=== PATIENT | male | born 1965 | race Two or more races ===

== ENCOUNTER 2018-09-17 15:36 | Emergency (ER) | payer OTHER ==
[~2018-09-17] VITALS: Ht 190.5 cm; Wt 103.0 kg
[2018-09-17] MEDS ORDERED: LISINOPRIL10 MG (16:16)
== END 2018-09-17 19:15 | disposition home or self-care (01) ==
LOC: ER 15:36 → EDBD 16:04 → ER 16:04
DX: K29.70 Gastritis, unspecified, without bleeding (principal)

== ENCOUNTER → 2021-07-17 11:09 | Outpatient (CLI) | payer OTHER ==
[~2021-07-17 11:09] MED LIST: LISINOPRIL10 MG
== END | disposition home or self-care (01) ==
LOC: LAB 11:09
PROVIDERS: ATTEND Physical Medicine & Rehabilitation Spinal Cord Injury Medicine
DX: Z20.828 Contact with and (suspected) exposure to other viral communicable diseases (principal)

== ENCOUNTER 2024-12-04 10:16 | Inpatient (IN) | payer OTHER ==
[~2024-12-04] VITALS: Ht 193 cm; Wt 93.9 kg
[2024-12-04] MEDS ORDERED: ZESTRIL20 MG PO (10:46)
[2024-12-04] MEDS ORDERED: 0.9 % SODIUM CHLORIDE 1,000 ML IV ONE (11:15)
[2024-12-04] MEDS ORDERED: BARIUM SULFATE 450 ML ORAL.SUSP PO ONE (11:52)
[2024-12-04 12:15] LABS: BASO % 0.1 % (0.1-1.2); EOS # 0.04 (0.04-0.54); EOS % 0.4 % (0.7-7.0); HEMATOCRIT 40.6 % (40.1-51.0); HEMOGLOBIN 13.9 g/dL (13.7-17.5); LYMPH # 1.45 (1.18-3.74); LYMPH % 15.2 % (19.3-53.1); MEAN CORPUSCULAR HEMOGLOBIN 32.9 pg (25.6-32.2); MONO # 0.81 (0.24-0.82); MONO % 8.5 % (4.7-12.5); NEUT # 7.22 (1.56-6.13); NEUT % 75.6 % (34.0-71.1); PLATELET COUNT 290 K/uL (163-369); RED BLOOD COUNT 4.22 M/uL (4.63-6.08); RED CELL DISTRIBUTION WIDTH 14.7 % (11.6-14.4)
[2024-12-04 12:17] LABS: PH,URINE 5.5 (5.0-8.0); URINE APPEARANCE Cloudy; URINE BILIRRUBIN Moderate (NEGATIVE); URINE BLOOD Large; URINE COLOR Dark Yellow; URINE GLUCOSE Negative (NEGATIVE); URINE LEUKOCYTE Small; URINE NITRATE Negative
[2024-12-04 12:20] LABS: URINE BACTERIA 24.4 uL (0.0-1933); URINE EPITHELIAL CELLS 13.1 uL (0.0-38.8); URINE RBC 1057.5 uL (0.0-20.8); URINE WBC 42.7 uL (0.0-23.2)
[2024-12-04 12:44] LABS: URINE CAST 1.03 uL (0.0-1.40); URINE KETONE 80 (NEGATIVE); URINE PROTEIN 100 (NEGATIVE)
[2024-12-04 12:53] LABS: URINE MUCUS MODERATE
[2024-12-04 12:54] LABS: INR 1.09; PARTIAL THROMBOPLASTIN TIME 29.7 SECONDS (22.0-34.0); PROTHROMBIN TIME 11.8 SECONDS (9.0-11.5)
[2024-12-04 13:05] LABS: ALBUMIN 3.7 gm/dL (3.4-5.0); BILIRUBIN TOTAL 1.49 mg/dL (0.3-1.2); CALCIUM 9.4 mg/dL (8.5-10.1); CREATININE SERUM 1.19 mg/dL (0.70-1.30); GFR 62.57; GLOBULINA 3.6 G/DL (2.4-3.5); POTASSIUM 4.12 mEq/L (3.5-5.1); TOTAL PROTEIN 7.3 gm/dL (6.4-8.2)
[2024-12-04] MEDS ORDERED: CEFTRIAXONE SODIUM 1,000 MG VIAL IV ONE (16:00)
[2024-12-04] MEDS ORDERED: MORPHINE SULFATE 2 MG/ML CARTRIDGE IV ONE (16:00)
[2024-12-04] MEDS ORDERED: CEFTRIAXONE SODIUM 1,000 MG VIAL ONE (16:15)
[2024-12-04] MEDS ORDERED: MORPHINE SULFATE 4 MG/ML VIAL IV ONE (16:45)
[2024-12-04] MEDS ORDERED: LABETALOL HCL 100 MG/20 ML ML ONE (17:28)
[2024-12-04] MEDS ORDERED: CEFTRIAXONE SODIUM 2,000 MG in 0.9 % SODIUM CHLORIDE 100 ML IV SCH (17:28)
[2024-12-04] MEDS ORDERED: FAMOTIDINE/PF 20 MG in 0.9 % SODIUM CHLORIDE 8 ML IV PUSH SCH (17:28)
[2024-12-04] MEDS ORDERED: ONDANSETRON HCL 4 MG in 0.9 % SODIUM CHLORIDE 50 ML IV PRN (17:30)
[2024-12-04] MEDS ORDERED: 0.9 % SODIUM CHLORIDE 1,000 ML IV SCH (17:30)
[2024-12-04] MEDS ORDERED: LABETALOL HCL 20MG/4ML SYRINGE IV ONE (17:30)
[2024-12-04] MEDS ORDERED: HYOSCYAMINE SULFATE 0.125 MG TAB.SUBL PO ONE (17:30)
[2024-12-04] MEDS ORDERED: MORPHINE SULFATE 4 MG/ML CARTRIDGE IV PRN (17:30)
[2024-12-04] MEDS ORDERED: ACETAMINOPHEN 500 MG GEL..CAP PO PRN (17:30)
[2024-12-04] MEDS ORDERED: TAMSULOSIN HCL 0.4 MG CAP PO SCH (17:37)
[2024-12-04] MEDS ORDERED: AMLODIPINE BESYLATE 2.5 MG TABLET PO PRN (17:45)
[2024-12-04 18:00] VITALS: BP 186/100; O2SAT 98
[2024-12-04] MEDS ORDERED: TAMSULOSIN HCL 0.4 MG CAP PO ONE (19:25)
[2024-12-04] MEDS ORDERED: FAMOTIDINE/PF 20 MG/2 ML VIAL ONE (19:26)
[2024-12-04] MEDS ORDERED: HYOSCYAMINE SULFATE 0.125 MG TAB.SUBL ONE (19:26)
[2024-12-04] MEDS ORDERED: PIPERACILLIN/TAZOBACTAM SODIUM 3.375 GM in DEXTROSE 5 % IN WATER 100 ML IV SCH (20:28)
[2024-12-04] MEDS ORDERED: KETOROLAC TROMETHAMINE 30 MG VIAL IV PRN (20:30)
[2024-12-04] MEDS ORDERED: KETOROLAC TROMETHAMINE 30 MG VIAL ONE (21:26)
[2024-12-04] MEDS ORDERED: PIPERACILLIN/TAZOBACTAM SODIUM 3.375 GM VIAL IV ONE (21:27)
[2024-12-04] MEDS ORDERED: ENOXAPARIN SODIUM 60 MG/0.6 ML SYRINGE SUBCUTANEO SCH (21:38)
[2024-12-04 22:30] VITALS: BP 147/70
[2024-12-05] VITALS: BP 148/78; O2SAT 97
[2024-12-05 05:23] VITALS: BP 140/83; O2SAT 100
[2024-12-05 08:00] VITALS: BP 165/87; O2SAT 96
[2024-12-05] MEDS ORDERED: LISINOPRIL 20 MG TABLET PO SCH (09:00)
[2024-12-05] MEDS ORDERED: ENOXAPARIN SODIUM 100 MG/ML SYRINGE SUBCUTANEO SCH (09:00)
[2024-12-05] MEDS ORDERED: CHLORHEXIDINE GLUCONATE 240 ML BOTTLE TOP SCH (13:20)
[2024-12-05 16:28] VITALS: BP 166/89; O2SAT 97
[2024-12-05] MEDS ORDERED: LACTOBACILLUS ACIDOPHILUS 1 CAP CAP PO SCH (17:00)
[2024-12-05] MEDS ORDERED: CHLORHEXIDINE GLUCONATE 120 ML BOTTLE TOP SCH (17:00)
[2024-12-05] MEDS ORDERED: DIBUCAINE 15 GM OINT..GM. TUBE RECTAL SCH (17:00)
[2024-12-05] MEDS ORDERED: DEXTROSE 5%-WATER 100ML IV.SOLN ONE (18:54)
[2024-12-06 01:00] VITALS: BP 155/81; O2SAT 98
[2024-12-06] MEDS ORDERED: DIBUCAINE 30 GM TUBE ONE (08:31)
[2024-12-06] MEDS ORDERED: LIDOCAINE HCL 1%/EPINEPHRINE 20ML VIAL IJ ONE (08:31)
[2024-12-06] MEDS ORDERED: POVIDONE-IODINE 118 ML BOTT TOP ONE (08:31)
[2024-12-06] MEDS ORDERED: HEMOSTATIC MATRIX 1 KIT KIT TOP ONE (08:31)
[2024-12-06] MEDS ORDERED: ONDANSETRON HCL 2 MG/ML VIAL ONE (09:55)
[2024-12-06 15:41] VITALS: BP 184/86; O2SAT 98
[2024-12-06] MEDS ORDERED: ENALAPRILAT DIHYDRATE 1.25 MG/ML VIAL IV PRN (16:15)
[2024-12-07 01:01] VITALS: BP 161/82; O2SAT 98
[2024-12-07 08:00] VITALS: BP 169/90; O2SAT 100
[2024-12-07 13:52] LABS: BASO % 0.6 % (0.1-1.2); EOS # 0.23 (0.04-0.54); EOS % 3.3 % (0.7-7.0); HEMATOCRIT 37.5 % (40.1-51.0); HEMOGLOBIN 12.6 g/dL (13.7-17.5); LYMPH # 1.52 (1.18-3.74); LYMPH % 21.7 % (19.3-53.1); MEAN CORPUSCULAR HEMOGLOBIN 31.6 pg (25.6-32.2); MONO # 0.69 (0.24-0.82); MONO % 9.9 % (4.7-12.5); NEUT # 4.49 (1.56-6.13); NEUT % 64.1 % (34.0-71.1); PLATELET COUNT 254 K/uL (163-369); RED BLOOD COUNT 3.99 M/uL (4.63-6.08); RED CELL DISTRIBUTION WIDTH 14.3 % (11.6-14.4)
[2024-12-07 14:18] LABS: CALCIUM 8.6 mg/dL (8.5-10.1); CREATININE SERUM 0.99 mg/dL (0.70-1.30); GFR 77.11; POTASSIUM 3.87 mEq/L (3.5-5.1)
[2024-12-07 15:54] VITALS: BP 192/95; O2SAT 99
[2024-12-07] MEDS ORDERED: POLYETHYLENE GLYCOL 3350 17 GM BLIST.PACK PO SCH (17:44)
[2024-12-08] VITALS: BP 157/90; O2SAT 99
[2024-12-08 09:00] VITALS: BP 175/98; O2SAT 98
[2024-12-08] MEDS ORDERED: PERCOCET 5-3251 EACH PO (09:24)
[2024-12-08 12:00] VITALS: BP 163/87
[2024-12-09] MEDS ORDERED: COZAAR25 MG PO (15:38)
== END 2024-12-08 15:00 | disposition home or self-care (01) | DRG 349 ==
LOC: ER 10:34 → SURG 17:51 → SEC-K 17:51 → SURG 18:52
PROVIDERS: General Practice; Student in an Organized Health Care Education/Training Program; Surgery; ADMIT Internal Medicine; ATTEND Internal Medicine
PROC: 06LY7CC Occlusion of Hemorrhoidal Plexus with Extraluminal Device, Via Natural or Artificial Opening (ICD-10-PCS; 2024-12-06)
PROC: 0DQQ7ZZ Repair Anus, Via Natural or Artificial Opening (ICD-10-PCS; 2024-12-06)
PROC: 3E0T3BZ Introduction of Anesthetic Agent into Peripheral Nerves and Plexi, Percutaneous Approach (ICD-10-PCS; 2024-12-06)
PROC: 06BY0ZC Excision of Hemorrhoidal Plexus, Open Approach (ICD-10-PCS; principal; 2024-12-06 08:00)
DX: K62.3 Rectal prolapse (principal); K62.89 Other specified diseases of anus and rectum; K64.2 Third degree hemorrhoids; K62.4 Stenosis of anus and rectum
CPT/HCPCS: 74182

== ENCOUNTER 2024-12-09 14:41 | Inpatient (IN) | payer OTHER ==
[~2024-12-09] VITALS: Ht 193 cm; Wt 93.9 kg
[~2024-12-09 14:41] MED LIST changes: +PERCOCET 5-3251 EACH PO; +ZESTRIL20 MG PO
[2024-12-09] MEDS ORDERED: COZAAR25 MG PO (15:38)
[2024-12-09] MEDS ORDERED: PANTOPRAZOLE SODIUM 40 MG in 0.9 % SODIUM CHLORIDE 10 ML IV PUSH STA (16:36)
[2024-12-09] MEDS ORDERED: RINGERS SOLUTION,LACTATED 1,000 ML IV SCH (16:45)
[2024-12-09 17:09] LABS: BASO % 0.2 % (0.1-1.2); EOS # 0.13 (0.04-0.54); EOS % 1.4 % (0.7-7.0); LYMPH # 1.14 (1.18-3.74); LYMPH % 12.2 % (19.3-53.1); MEAN CORPUSCULAR HEMOGLOBIN 32.5 pg (25.6-32.2); MONO # 0.99 (0.24-0.82); MONO % 10.6 % (4.7-12.5); NEUT # 7.02 (1.56-6.13); NEUT % 75.2 % (34.0-71.1); PLATELET COUNT 304 K/uL (163-369); RED CELL DISTRIBUTION WIDTH 14.5 % (11.6-14.4)
[2024-12-09 17:31] LABS: HEMOGLOBIN 7.8 g/dL (13.7-17.5)
[2024-12-09 17:37] LABS: ALBUMIN 2.7 gm/dL (3.4-5.0); BILIRUBIN TOTAL 0.85 mg/dL (0.3-1.2); CALCIUM 8.4 mg/dL (8.5-10.1); CREATININE SERUM 1.05 mg/dL (0.70-1.30); GFR 72.05; GLOBULINA 3.1 G/DL (2.4-3.5); POTASSIUM 3.84 mEq/L (3.5-5.1); TOTAL PROTEIN 5.8 gm/dL (6.4-8.2)
[2024-12-09] MEDS ORDERED: FUROsemide 20 MG/2 ML VIAL IV SCH (17:45)
[2024-12-09] MEDS ORDERED: FAMOTIDINE/PF 20 MG in 0.9 % SODIUM CHLORIDE 8 ML IV PUSH SCH (21:17)
[2024-12-09] MEDS ORDERED: ACETAMINOPHEN 500 MG GEL..CAP PO PRN (21:30)
[2024-12-09] MEDS ORDERED: ONDANSETRON HCL 4 MG in 0.9 % SODIUM CHLORIDE 50 ML IV PRN (21:30)
[2024-12-09 22:49] LABS: INR 1.08; PARTIAL THROMBOPLASTIN TIME 31.9 SECONDS (22.0-34.0); PROTHROMBIN TIME 11.7 SECONDS (9.0-11.5)
[2024-12-09 23:00] VITALS: BP 144/76; O2SAT 100
[2024-12-10] VITALS (8 sets, daily range): BP systolic 155–169; BP diastolic 84–97; O2SAT 00–100
[2024-12-10 08:41] LABS: URINE APPEARANCE Clear; URINE BILIRRUBIN Negative (NEGATIVE); URINE BLOOD Negative; URINE COLOR Yellow; URINE GLUCOSE Negative (NEGATIVE); URINE KETONE 15 (NEGATIVE); URINE LEUKOCYTE Negative; URINE NITRATE Negative; URINE PROTEIN Negative (NEGATIVE)
[2024-12-10 08:50] LABS: URINE EPITHELIAL CELLS 23.7 uL (0.0-38.8); URINE RBC 7.6 uL (0.0-20.8); URINE WBC 19.9 uL (0.0-23.2)
[2024-12-10] MEDS ORDERED: LOSARTAN POTASSIUM 25 MG TABLET PO SCH (09:00)
[2024-12-10 09:40] LABS: URINE BACTERIA 3.6 uL (0.0-1933); URINE CAST 1.32 uL (0.0-1.40)
[2024-12-10 09:42] LABS: URINE MUCUS SCANT
[2024-12-10] MEDS ORDERED: LOSARTAN/HYDROCHLOROTHIAZIDE 1 UDTAB TABLET PO SCH (11:02)
[2024-12-10] MEDS ORDERED: FUROsemide 20 MG/2 ML VIAL ONE (19:42)
[2024-12-10] MEDS ORDERED: ENALAPRILAT DIHYDRATE 1.25 MG/ML VIAL IV PRN (20:00)
[2024-12-10] MEDS ORDERED: FAMOTIDINE/PF 20 MG in 0.9 % SODIUM CHLORIDE 8 ML IV PUSH SCH (21:00)
[2024-12-10] MEDS ORDERED: FAMOTIDINE/PF 20 MG/2 ML VIAL ONE (21:25)
[2024-12-10] MEDS ORDERED: ENALAPRILAT DIHYDRATE 1.25 MG/ML VIAL IV ONE (21:25)
[2024-12-11] VITALS: BP 161/86
[2024-12-11] MEDS ORDERED: FUROsemide 20 MG/2 ML VIAL ONE (00:10)
[2024-12-11 01:01] VITALS: BP 178/83; O2SAT 100
[2024-12-11 02:54] LABS: BASO % 0.6 % (0.1-1.2); EOS % 4.9 % (0.7-7.0); LYMPH % 24.4 % (19.3-53.1); MEAN CORPUSCULAR HEMOGLOBIN 31.4 pg (25.6-32.2); MONO # 1.37 (0.24-0.82); NEUT # 4.27 (1.56-6.13); NEUT % 51.9 % (34.0-71.1); PLATELET COUNT 332 K/uL (163-369); RED BLOOD COUNT 3.12 M/uL (4.63-6.08); RED CELL DISTRIBUTION WIDTH 15.6 % (11.6-14.4)
[2024-12-11 02:55] LABS: HEMOGLOBIN 9.8 g/dL (13.7-17.5); MONO % 16.7 % (4.7-12.5)
[2024-12-11 08:00] VITALS: BP 133/79; O2SAT 100
[2024-12-11] MEDS ORDERED: LOSARTAN POTASSIUM 50 MG TABLET PO SCH (09:00)
[2024-12-11 16:22] VITALS: BP 160/63; O2SAT 100
[2024-12-11 18:22] VITALS: BP 164/85
[2024-12-11 21:00] VITALS: BP 151/83
[2024-12-12 00:19] VITALS: BP 126/76; O2SAT 100
[2024-12-12 06:55] LABS: BASO % 0.4 % (0.1-1.2); EOS # 0.23 (0.04-0.54); HEMATOCRIT 29.7 % (40.1-51.0); HEMOGLOBIN 10.2 g/dL (13.7-17.5); LYMPH # 1.83 (1.18-3.74); LYMPH % 24.2 % (19.3-53.1); MEAN CORPUSCULAR HEMOGLOBIN 31.9 pg (25.6-32.2); MONO # 0.92 (0.24-0.82); NEUT # 4.43 (1.56-6.13); NEUT % 58.7 % (34.0-71.1); PLATELET COUNT 387 K/uL (163-369); RED CELL DISTRIBUTION WIDTH 15.2 % (11.6-14.4)
[2024-12-12 07:15] LABS: MONO % 12.2 % (4.7-12.5)
[2024-12-12] MEDS ORDERED: POLYETHYLENE GLYCOL 3350 17 GM BLIST.PACK PO SCH (12:00)
[2024-12-12 14:38] VITALS: BP 157/83; O2SAT 97
[2024-12-12 16:44] VITALS: BP 164/91; O2SAT 97
[2024-12-13 00:39] VITALS: BP 134/83; O2SAT 100
[2024-12-13 08:07] VITALS: BP 147/88; O2SAT 97
[2024-12-13] MEDS ORDERED: NEURONTIN300 MG PO (12:54)
[2024-12-13] MEDS ORDERED: COLACE100 MG PO (12:54)
[2024-12-13] MEDS ORDERED: KETOROLAC TROMETHAMINE 30 MG VIAL IV NR (13:00)
[2024-12-13 16:39] VITALS: BP 175/88; O2SAT 100
== END 2024-12-14 07:46 | disposition home or self-care (01) | DRG 379 ==
LOC: ER 14:41 → MEDJ 21:29 → ICU-2 21:29 → SEC-K 12-10 12:28 → SURG 12-10 19:46
PROVIDERS: General Practice; ADMIT Internal Medicine; ATTEND Internal Medicine
PROC: 30233N1 Transfusion of Nonautologous Red Blood Cells into Peripheral Vein, Percutaneous Approach (ICD-10-PCS; principal; 2024-12-10)
DX: K62.5 Hemorrhage of anus and rectum (principal); D64.9 Anemia, unspecified